=== PATIENT | female | born 2000 | race Caucasian/White ===

== ENCOUNTER 2020-11-30 04:19 | Emergency (ER) | payer SELFPAY ==
[~2020-11-30] VITALS: Ht 170.2 cm; Wt 59.9 kg
[2020-11-30] MEDS ORDERED: CLIN-141 PO (04:56)
[2020-11-30] MEDS ORDERED: NEOMY SULF/BACITRA/POLYMYXIN B 1 EACH PACKET TP ONE (05:00)
[2020-11-30] MEDS ORDERED: TETANUS/DIPHTHERIA TOXOID [ADULT] 0.5 ML VIAL IM ONE (05:00)
[2020-11-30] MEDS ORDERED: CLINDAMYCIN 150 MG CAP PO ONE (05:00)
[2020-11-30 05:52] VITALS: BP 120/68
== END 2020-11-30 05:54 | disposition home or self-care (01) ==
LOC: EDH 04:19
DX: S60.511A Abrasion of right hand, initial encounter (principal); S60.512A Abrasion of left hand, initial encounter; S50.812A Abrasion of left forearm, initial encounter; S50.811A Abrasion of right forearm, initial encounter; Z88.0 Allergy status to penicillin; W55.03XA Scratched by cat, initial encounter; Y93.89 Activity, other specified; Y92.89 Other specified places as the place of occurrence of the external cause; Y99.8 Other external cause status
CPT/HCPCS: 90471; 90714

== ENCOUNTER 2021-01-27 17:31 | Emergency (ER) | payer OTHER ==
[~2021-01-27] VITALS: Ht 167.6 cm; Wt 72.6 kg
[~2021-01-27 17:31] MED LIST: CLIN-141 PO
[2021-01-27 17:34] VITALS: BP 126/83
[2021-01-27] MEDS ORDERED: MELO7.5T12 PO (21:51)
[2021-01-27] MEDS ORDERED: DOXY-336 PO (21:51)
== END 2021-01-27 19:21 | disposition left against medical advice (07) ==
LOC: EDH 17:31
DX: S60.812A Abrasion of left wrist, initial encounter (principal); S60.811A Abrasion of right wrist, initial encounter; W55.03XA Scratched by cat, initial encounter; Y93.89 Activity, other specified; Y92.89 Other specified places as the place of occurrence of the external cause; Y99.8 Other external cause status; Z53.21 Procedure and treatment not carried out due to patient leaving prior to being seen by health care provider

== ENCOUNTER 2021-01-27 21:07 | Emergency (ER) | payer OTHER ==
[~2021-01-27] VITALS: Ht 167.6 cm; Wt 85.3 kg
[2021-01-27] MEDS ORDERED: MELO7.5T12 PO (21:51)
[2021-01-27] MEDS ORDERED: DOXY-336 PO (21:51)
[2021-01-27] MEDS ORDERED: ACETAMINOPHEN 500 MG TABLET PO ONE (22:00)
[2021-01-27] MEDS ORDERED: NEOMY SULF/BACITRA/POLYMYXIN B 1 EACH PACKET TP ONE (22:00)
[2021-01-27] MEDS ORDERED: IBUPROFEN 600 MG TABLET PO ONE (22:00)
[2021-01-27] MEDS ORDERED: DOXYCYCLINE HYCLATE 100 MG TABLET PO ONE (22:00)
[2021-01-27] MEDS ORDERED: ACETAMINOPHEN WITH CODEINE 1 TAB TAB PO ONE (22:00)
[2021-01-27 22:18] VITALS: BP 127/89
== END 2021-01-27 23:09 | disposition home or self-care (01) ==
LOC: EDH 21:07
DX: S61.412A Laceration without foreign body of left hand, initial encounter (principal); S61.452A Open bite of left hand, initial encounter; Z88.0 Allergy status to penicillin; Z79.1 Long term (current) use of non-steroidal anti-inflammatories (NSAID); W55.01XA Bitten by cat, initial encounter; S61.432A Puncture wound without foreign body of left hand, initial encounter; Y93.89 Activity, other specified; Y92.89 Other specified places as the place of occurrence of the external cause; Y99.8 Other external cause status

== ENCOUNTER 2021-04-20 12:14 | Emergency (ER) | payer OTHER ==
[~2021-04-20] VITALS: Ht 167.6 cm; Wt 59.0 kg
[~2021-04-20 12:14] MED LIST changes: +DOXY-336 PO; +MELO7.5T12 PO
[2021-04-20 12:19] VITALS: BP 131/63
[2021-04-20] MEDS ORDERED: DOXY-336 PO (12:47)
== END 2021-04-20 13:14 | disposition home or self-care (01) ==
LOC: EDH 12:14
DX: S61.432A Puncture wound without foreign body of left hand, initial encounter (principal); S51.832A Puncture wound without foreign body of left forearm, initial encounter; Z79.1 Long term (current) use of non-steroidal anti-inflammatories (NSAID); Z88.0 Allergy status to penicillin; W55.01XA Bitten by cat, initial encounter; Y93.89 Activity, other specified; Y92.89 Other specified places as the place of occurrence of the external cause; Y99.8 Other external cause status
CPT/HCPCS: 99281